=== PATIENT | male | born 1955 | race Caucasian/White ===

== ENCOUNTER → 2020-07-23 | Outpatient (CLI) | payer BC ==
--- NOTE | 2020-07-23 13:11 | CT ---
EXAMINATION TYPE: CT pelvis w con DATE OF EXAM: 07/23/2020 COMPARISON: None HISTORY: right sided groin pain without injury CT DLP: 762 mGycm Automated exposure control for dose reduction was used. TECHNIQUE: Helical acquisition of images from the lung bases through the pelvis have been completed. CONTRAST: Performed without Oral Contrast and with IV Contrast, patient injected with 100 mL of Isovue 300. FINDINGS: There is some motion present. LUNG BASES: No significant abnormality is appreciated. AORTA: No significant abnormality is appreciated. LIVER/GB: No significant abnormality is appreciated in the visualized portions. PANCREAS: No significant abnormality is seen in the visualized portions. SPLEEN: No significant abnormality is seen. ADRENALS: No significant abnormality is seen. KIDNEYS: No significant abnormality is seen. REPRODUCTIVE ORGANS: Calcifications associated with the prostate. Bilateral hydroceles are suspected. BOWEL: Diverticular changes associated with the colon. FREE AIR: No Free Air visible. ASCITES: None visible. PELVIC ADENOPATHY: None visualized. RETROPERITONEAL ADENOPATHY: No Retroperitoneal Adenopathy visible. URINARY BLADDER: Thickened bladder wall could be due to lack of distention, correlate to exclude cys titis, chronic bladder outlet obstruction. OSSEOUS STRUCTURES: Spondylosis is noted with mild degenerative disc disease and facet arthropathy. There is a disc herniation at L3-4. Some ankylosis, degenerative change present at the sacroiliac charlotte nt on the right. IMPRESSION: DEGENERATIVE DISC DISEASE AND FACET ARTHROPATHY DESCRIBED. DIVERTICULOSIS. BILATERAL HYDROCELES. A DDITIONAL FINDINGS ABOVE.
== END | disposition home or self-care (01) ==
LOC: RADCTMAIN 11:26
PROVIDERS: ATTEND Surgery
DX: N43.3 Hydrocele, unspecified (principal); K57.30 Diverticulosis of large intestine without perforation or abscess without bleeding; N32.89 Other specified disorders of bladder
CPT/HCPCS: 72193; Q9967

== ENCOUNTER → 2021-04-21 | Outpatient (CLI) | payer MEDICARE ==
[2021-04-21 10:24] LABS: Basophils % (A) 1 %; Eosinophils # (A) 0.2 k/uL (0-0.7); Eosinophils % (A) 3 %; HCT 44.1 % (39.0-53.0); HGB 14.6 gm/dL (13.0-17.5); Lymphocytes % (A) 32 %; MCH 33.1 pg (25.0-35.0); MCV 100.2 fL (80.0-100.0); Mean Platelet Volume 6.9; Monocytes # (A) 0.6 k/uL (0-1.0); Monocytes % (A) 9 %; Neutrophils # (A) 3.4 k/uL (1.3-7.7); Neutrophils % (A) 52 %; Platelet Count 289 k/uL (150-450); RDW 12.1 % (11.5-15.5); WBC 6.4 k/uL (3.8-10.6)
[2021-04-21 10:35] LABS: Potassium 4.1 mmol/L (3.5-5.1)
== END | disposition home or self-care (01) ==
LOC: LABPAT 09:40
PROVIDERS: ATTEND Orthopaedic Surgery
DX: Z01.812 Encounter for preprocedural laboratory examination (principal); M70.22 Olecranon bursitis, left elbow
CPT/HCPCS: 36415; 80051; 85025

== ENCOUNTER → 2021-06-22 | Outpatient (CLI) | payer MEDICARE, BC ==
[2021-06-22 09:42] LABS: Basophils % (A) 1 %; Eosinophils # (A) 0.2 k/uL (0-0.7); Eosinophils % (A) 4 %; HCT 43.7 % (39.0-53.0); HGB 14.5 gm/dL (13.0-17.5); Lymphocytes # (A) 1.9 k/uL (1.0-4.8); Lymphocytes % (A) 30 %; MCH 33.3 pg (25.0-35.0); MCHC 33.3 g/dL (31.0-37.0); MCV 99.9 fL (80.0-100.0); Mean Platelet Volume 6.7; Monocytes # (A) 0.5 k/uL (0-1.0); Monocytes % (A) 7 %; Neutrophils # (A) 3.5 k/uL (1.3-7.7); Neutrophils % (A) 56 %; Platelet Count 271 k/uL (150-450); RBC 4.37 m/uL (4.30-5.90); RDW 11.9 % (11.5-15.5); WBC 6.3 k/uL (3.8-10.6)
[2021-06-22 10:08] LABS: Potassium 4.8 mmol/L (3.5-5.1)
== END | disposition home or self-care (01) ==
LOC: LABPAT 09:01
PROVIDERS: ATTEND Orthopaedic Surgery
DX: Z01.812 Encounter for preprocedural laboratory examination (principal); M70.22 Olecranon bursitis, left elbow
CPT/HCPCS: 36415; 80051; 85025

== ENCOUNTER 2021-07-07 06:32 | Day surgery (SDC) | payer MEDICARE, BC ==
[2021-07-06 08:50] VITALS: BMI 25.7
--- NOTE | 2021-07-06 19:26 | HP ---
HISTORY AND PHYSICAL DATE OF SURGERY: 07/07/2021 Hal Julio is a 65-year-old gentleman seen with a persistent symptomatic left elbow olecranon bursitis. We discussed options for treatment and elected to proceed with surgical excision/olecranon bursectomy. Consent was obtained. PAST MEDICAL HISTORY: Noncontributory. PAST SURGICAL HISTORY: Noncontributory. DAILY MEDICATIONS: None. ALLERGIES: None known. SOCIAL HISTORY: Denies tobacco use. PHYSICAL EVALUATION OF THE LEFT ELBOW: There is significant swelling of the olecranon bursa. Small pin hole with some serous drainage. Tenderness to palpation along the olecranon bursa. Range of motion is near full. His distal neurovascular exam is intact. Radiographs of the left elbow revealed no osseous abnormality. IMPRESSION: Left elbow olecranon bursitis. PLAN: Left elbow olecranon bursectomy. MMODL / IJN: [id number] /
[~2021-07-07 06:32] MED LIST: DEXAMETHASONE SOD PHOSPHATE 4 MG/ML 1 ML VIAL IV ONE; LACTATED RINGERS 1,000 ML IV SCH; LIDOCAINE 1% (10MG/ML) FOR IV START INTRADERMA PRN; MIDAZOLAM 2 MG/2 ML VIAL IV PRN; ONDANSETRON 4 MG/2 ML VIAL IVP ONE
[2021-07-07] MEDS ORDERED: HYDROmorphone 0.5 MG/0.5 ML SYRINGE IVP PRN ×2 (07:00→08:17)
[2021-07-07] MEDS ORDERED: KETAMINE 10 MG/ML 20 ML VIAL ONE (07:20)
[2021-07-07] MEDS ORDERED: MIDAZOLAM 2 MG/2 ML VIAL ONE (07:20)
[2021-07-07] MEDS ORDERED: fentaNYL (PF) 50 MCG/ML 2 ML AMP ONE (07:20)
[2021-07-07] MEDS ORDERED: KETOROLAC 15 MG/ML 1 ML VIAL ONE (07:20)
[2021-07-07] MEDS ORDERED: PROPOFOL 10 MG/ML 20 ML VIAL IV ONE (07:20)
[2021-07-07] MEDS ORDERED: LIDOCAINE 1% INJ 10MG/ML (20 ML MDV) ONE (07:20)
[2021-07-07] MEDS ORDERED: BUPIVACAINE (PF) 0.25% 30 ML VIAL SQ ONE ×2 (07:52→08:12)
[2021-07-07] MEDS ORDERED: HYDROmorphone 0.2 MG/1 ML SYRINGE IVP PRN (08:17)
[2021-07-07] MEDS ORDERED: HYDROcodone/APAP 5-325MG 1 EACH TAB PO PRN (08:17)
[2021-07-07] MEDS ORDERED: HYDROmorphone 1 MG/ML 1 ML SYRINGE IVP PRN (08:17)
[2021-07-07] MEDS ORDERED: ONDANSETRON 4 MG/2 ML VIAL IVP PRN (08:17)
--- NOTE | 2021-07-07 08:17 | P.OP ---
Date of Procedure: 07/07/21 Preoperative Diagnosis: Left elbow olecranon bursitis Postoperative Diagnosis: Infected left elbow olecranon bursitis Procedure(s) Performed: Left elbow olecranon bursectomy Anesthesia: JOELLENA, local Surgeon: Nakul Kurtz Marketing Recruiter #1: Raphael Cornejo Estimated Blood Loss (ml): 7 Pathology: none sent Condition: stable Disposition: PACU Indications for Procedure: 65-year-old patient seen with left elbow olecranon bursitis. Noted some persistent drainage in the area for a few months. I recommended olecranon bursectomy. He was agreeable. Consent was obtained. Operative Findings: See description of procedure Description of Procedure: The patient was taken to the operative suite. He underwent a general anesthetic by the department of anesthesia. He received preoperative IV antibiotics. A well-padded tourniquet placed proximal left upper extremity. The left upper extremity was prepped and draped in the normal sterile orthopedic fashion. The extremity was elevated and tourniquet insufflated to 250. An incision was made over the area of the olecranon bursa sharply through skin. There was an area of drainage centrally. I did make an incision through that area. I noted the area of infected olecranon bursa which I took cultures of. I now with assistance of Deangelo WHITAKER performed a thorough olecranon bursectom excising all bursal- appearing tissue. There did not appear to be any involvement of the olecranon itself. The wound was irrigated copiously. I repaired the subcu soft tissues with 2-0 Vicryl. The skin was approximated with nylon suture. The subcutaneous soft tissues were infiltrated with local analgesic. Sterile dressings were applied. The tourniquet was released with immediate capillary refill noted. The patient was awakened and transferred to recovery in stable condition having tolerated procedure well.
[2021-07-07] MEDS ORDERED: VANCOMYCIN IV PER PHARMACY 1 EACH MISC MISCELLANE PRN (10:05)
[2021-07-07] MEDS ORDERED: VANCOMYCIN 1,500 MG in SODIUM CHLORIDE 0.9% 250 ML IVPB ONE (12:30)
[2021-07-07 14:53] LABS: African American GFR (CKD) 88 (>60 ml/min/1.73 sqM); Anion Gap 10 mmol/L; Blood Urea Nitrogen 19 mg/dL (9-20); C Reactive Protein 0.8 mg/dL (<1.0); Calcium 9.2 mg/dL (8.4-10.2); Carbon Dioxide 22 mmol/L (22-30); Chloride 105 mmol/L (98-107); Glucose 162 mg/dL (74-99); Non-African American GFR(CKD) 76 (>60 ml/min/1.73 sqM); Potassium 4.5 mmol/L (3.5-5.1); Sodium 137 mmol/L (137-145)
[2021-07-07] MEDS: CEFEPIME 2 GM in SODIUM CHLORIDE 0.9% 100 ML IVPB SCH ×2 (15:02→19:47)
--- NOTE | 2021-07-07 16:54 | P.HPIM ---
History of Present Illness H&P Date: 07/07/21 Chief Complaint: left elbow drainage Patient is a 65-year-old male with no known past medical history who presented for elective left elbow olecranon bursectomy secondary to chronic drainage from his olecranon bursitis. On screening he was coded positive. Patient seen and examined at bedside. His pain is well controlled after surgery. He states he initially started having drainage in April 2021. At that point in time he underwent a course of Keflex and Cipro. Since that time he has had intermittent drainage and swelling. He then elected to undergo bursectomy. He reports that he has no history of colon in the past. He has not been vaccinated. He denies any recent cough, cold, fever, flu, nausea, vomiting, diarrhea. He is asymptomatic. He has no known: Contacts. No one at home is sick. He did just travel home from [facility]. Pertinent positives and negatives as discussed in HPI, a complete review of systems was performed and all other systems are negative. General: non toxic, no distress, appears at stated age Derm: warm, dry dressing in place over her left elbow Head: atraumatic, normocephalic, symmetric Eyes: EOMI, no lid lag, anicteric sclera, pupils equal round reactive to light ENT: Nose and ears atraumatic, no thrush, no pharyngeal erythema Neck: No thyromegaly, no cervical lymphadenopathy, trachea midline, supple Mouth: no lip lesion, mucus membranes moist Cardiovascular: S1S2 reg, no murmur, positive posterior tibial pulse bilateral, no edema, capillary refill less than 2 seconds Lungs: clear to ascultation bilateral, no ronchi, no rales, no wheeze, no accessory muscle use Abdominal: soft, nontender to palpation, no guarding, no appreciable organomegaly, normal bowel sounds Ext: no gross muscle atrophy, muscle strength muscle strength intact bilateral lower extremities, no contractures, dressing in place over left elbow Neuro: CN II-XI grossly intact, light touch intact all 4 extremities, finger to nose within normal limits, Psych: Alert, oriented, appropriate affect COVID-19 upper respiratory tract infection -Asymptomatic -Continue to monitor -Zinc and vitamin C -Check CBC but avoid the remainder of the labs unless patient spikes fever or becomes symptomatic. -No additional medications warranted unless patient starts requiring oxygen. Chronic bursitis -Status post olecranon bursectomy -On cefepime and vancomycin per orthopedic surgery -Await infectious disease recommendations Thank you for allowing us to participate in the care of this pleasant patient. Do not hesitate to contact us with questions. Someone can be reached from the [facility] hospitalist group all hours of the day at [phone] or via [employer]. Past Medical History Past Medical History: No Reported History History of Any Multi-Drug Resistant Organisms: None Reported Past Surgical History: Tonsillectomy Past Anesthesia/Blood Transfusion Reactions: No Reported Reaction Past Psychological History: No Psychological Hx Reported Smoking Status: Never smoker Past Alcohol Use History: Occasional Past Drug Use History: None Reported - Past Family History Father Family Medical History: Cancer Additional Family Medical History / Comment(s): COLON CANCER Medications and Allergies Home Medications Medication Instructions Recorded Confirmed Type No Known Home Medications 07/06/21 07/07/21 History Allergies Allergy/AdvReac Type Severity Reaction Status Date / Time No Known Allergies Allergy Verified 07/07/21 06:52 Physical Exam Osteopathic Statement: *. No significant issues noted on an osteopathic structural exam other than those noted in the History and Physical/Consult. Vitals: Vital Signs Temp Pulse Pulse Resp BP Pulse Ox 07/07/21 13:30 98 F 64 17 132/75 95 07/07/21 12:57 68 18 131/72 99 07/07/21 12:00 58 L 18 113/64 99 07/07/21 11:00 64 20 121/67 98 07/07/21 10:30 60 18 119/71 99 07/07/21 10:00 54 L 18 117/66 98 07/07/21 09:30 58 L 18 118/68 98 07/07/21 09:00 58 L 18 112/67 98 07/07/21 08:45 54 L 18 107/66 98 07/07/21 08:32 56 L 16 99/61 98 07/07/21 08:19 97.8 F 66 16 112/64 98 07/07/21 06:57 98.0 F 77 16 134/83 97 Intake and Output 07/07/21 07/07/21 07/07/21 06:59 14:59 22:59 Intake Total 1000 Output Total 7 Balance 993 Intake: IV 1000 Output: Estimated Blood Loss 7 Other: # Voids 1 Weight 90.718 kg Results CBC & Chem 7: 10/28/21 13:55 Labs: Abnormal Lab Results - Last 24 Hours (Table) 07/07/21 07/07/21 Range/Units 09:30 13:55 Glucose 162 H (74-99) mg/dL Coronavirus (PCR) Detected A (Not Detectd) Thrombosis Risk Factor Assmnt - Choose All That Apply Any of the Below Risk Factors Present?: No Other Risk Factors: Yes Each Risk Factor Represents 2 Points: Age 61-74 years Thrombosis Risk Factor Assessment Total Risk Factor Score: 2 Thrombosis Risk Factor Assessment Level: Low Risk
[2021-07-07] MEDS: ZINC SULFATE 220 MG CAP PO SCH (17:41)
[2021-07-07] MEDS: ASCORBIC ACID 500 MG TAB PO SCH (17:41)
[2021-07-07] MEDS: HYDROcodone/APAP 5-325MG 1 EACH TAB PO PRN ×2 (17:42→23:54)
[2021-07-07] MEDS: CHOLECALCIFEROL 25 MCG (1000 IU) TABLET PO SCH (19:26)
[2021-07-07] MEDS: LACTATED RINGERS 1,000 ML IV SCH (19:29)
[2021-07-07 20:09] VITALS: RESP 18
--- NOTE | 2021-07-07 23:35 | P.CONS ---
History of Present Illness - Reason for Consult Consult date: 07/07/21 left olecranon bursitis Requesting physician: Nakul Kurtz - Chief Complaint left elbow draiange x few months - History of Present Illness History of present illness : Patient is a 65-year-old male apparently has been dealing with left elbow infection that has been going on for almost 3 months now patient mention initially he was treated with an oral Keflex subsequently he did have a cultures obtained and was told it was a Pseudomonas and the patient was treated with a 10-day course of oral Cipro the patient mentioned has some improvement but not complete resolution patient has been dealing with drainage from his left elbow area patient has significant pain to the elbow area minimal swelling with no significant redness and denies high- grade fever patient subsequently was referred to Dr. Kurtz, patient was taken to the this morning and the patient is status post left elbow olecranon bursectomy culture has been obtained and has been mentioned that the bone looked healthy and no concern for osteomyelitis patient was started on vancomycin adm itted to the hospital infectious was consulted for further management patient currently denies having any fever or any chills denies having any chest pain no shortness of breath or cough no nausea vomiting abdominal pain no diarrhea and insisted on going home Review of system: CONSTITUTIONAL: Positive for weakness denies fever. EYES: No complaint. ENT: No complaint. RESPIRATORY: No complaint. CARDIOVASCULAR: No complaint. GENITOURINARY: No complaint. GASTROINTESTINAL: No complaint. MUSCULOSKELETAL: As per history of present illness INTEGUMENTARY: No complaint. PSYCHOLOGIC: No complaint. ENDOCRINE: No complaint. NEUROLOGIC: No complaint. Past medical history : Reviewed, documented below Past surgical history : Reviewed, documented below Social history: Reviewed, documented below Medications: Reviewed, as documented below EXAMINATION: Vital sigans= Reviewed and documented below GENERAL DESCRIPTION: Elderly male lying in bed, no distress. No tachypnea or accessory muscle of respiration use. HEENT: Shows Pallor , no scleral icterus. Oral mucous membrane is dry. NECK: Trachea central, no thyromegaly. LUNGS: Unlabored breathing. Clear to auscultation anteriorly. No wheeze or crackle. HEART: S1, S2, regular rate and rhythm. ABDOMEN: Soft, no tenderness , guarding or rigidity EXTREMITIES: Left elbow is currently dressed in the OR and dressing had no drainage of the dressing SKIN: No rash, no masses palpable. NEUROLOGICAL: The patient is awake, alert, oriented x3, mood and affect normal. LABS AND RADIOLOGY: Reviewed results see below Assessment : Patient presented to hospital with a left olecranon bursitis chronic that has failed to respond to outpatient oral antibiotic therapy apparently the patient did have a previous culture positive for Pseudomonas davian henry I do not have access to those culture as there are no cultures in the [facility] system possibly related to Pseudomonas versus a gram-positive skin guillermo in this patient with status post bursectomy with mention of no problem with underlying bone Plan: 1-vancomycin pharmacy to dose with a target trough of 15 while watching kidney function and Vanco trough closely. 2-cefepime 2 g every 8 hours 3-discharge antibiotic on the basis of culture however the patient insisted on going home without waiting for the culture and option may be oral Bactrim DS and Cipro to start with and adjust it further on the basis of cultures We will follow on clinical condition and cultures to further adjust medication if needed Thank you for this consultation we will follow the patient along with you Past Medical History Past Medical History: No Reported History History of Any Multi-Drug Resistant Organisms: None Reported Past Surgical History: Tonsillectomy Past Anesthesia/Blood Transfusion Reactions: No Reported Reaction Past Psychological History: No Psychological Hx Reported Smoking Status: Never smoker Past Alcohol Use History: Occasional Past Drug Use History: None Reported - Past Family History Father Family Medical History: Cancer Additional Family Medical History / Comment(s): COLON CANCER Medications and Allergies Home Medications Medication Instructions Recorded Confirmed Type No Known Home Medications 07/06/21 07/07/21 History Allergies Allergy/AdvReac Type Severity Reaction Status Date / Time No Known Allergies Allergy Verified 07/07/21 06:52 Physical Exam Vitals: Vital Signs Temp Pulse Pulse Resp BP Pulse Ox 07/07/21 12:57 68 18 131/72 99 07/07/21 12:00 58 L 18 113/64 99 07/07/21 11:00 64 20 121/67 98 07/07/21 10:30 60 18 119/71 99 07/07/21 10:00 54 L 18 117/66 98 07/07/21 09:30 58 L 18 118/68 98 07/07/21 09:00 58 L 18 112/67 98 07/07/21 08:45 54 L 18 107/66 98 07/07/21 08:32 56 L 16 99/61 98 07/07/21 08:19 97.8 F 66 16 112/64 98 07/07/21 06:57 98.0 F 77 16 134/83 97 Intake and Output 07/06/21 07/07/21 07/07/21 22:59 06:59 14:59 Intake Total 1000 Output Total 7 Balance 993 Intake: IV 1000 Output: Estimated Blood Loss 7 Other: Weight 90.718 kg Results CBC & Chem 7: 07/07/21 13:55 Labs: Abnormal Lab Results - Last 24 Hours (Table) 07/07/21 Range/Units 09:30 Coronavirus (PCR) Detected A (Not Detectd)
[2021-07-07] MEDS: VANCOMYCIN 1,500 MG in SODIUM CHLORIDE 0.9% 250 ML IVPB SCH (23:54)
[2021-07-08] MEDS: CEFEPIME 2 GM in SODIUM CHLORIDE 0.9% 100 ML IVPB SCH ×2 (04:17→12:56)
[2021-07-08] MEDS: LACTATED RINGERS 1,000 ML IV SCH (04:18)
[2021-07-08 06:03] LABS: African American GFR (CKD) >90 (>60 ml/min/1.73 sqM); LDH 337 U/L (313-618); Non-African American GFR(CKD) 80 (>60 ml/min/1.73 sqM)
[2021-07-08 06:32] LABS: C Reactive Protein 0.7 mg/dL (<1.0)
[2021-07-08] MEDS: ASCORBIC ACID 500 MG TAB PO SCH (08:15)
[2021-07-08] MEDS: ZINC SULFATE 220 MG CAP PO SCH (08:15)
[2021-07-08] MEDS: CHOLECALCIFEROL 25 MCG (1000 IU) TABLET PO SCH (08:15)
--- NOTE | 2021-07-08 08:15 | XR ---
EXAMINATION TYPE: XR chest 1V portable DATE OF EXAM: 07/08/2021 COMPARISON: None INDICATION: Pneumonia TECHNIQUE: Single frontal view of the chest is obtained. FINDINGS: The heart size is normal. The pulmonary vasculature is normal. The lungs are clear. IMPRESSION: 1. No acute pulmonary process.
[2021-07-08] MEDS: HYDROcodone/APAP 5-325MG 1 EACH TAB PO PRN (08:33)
[2021-07-08] MEDS: VANCOMYCIN 1,500 MG in SODIUM CHLORIDE 0.9% 250 ML IVPB SCH (08:34)
--- NOTE | 2021-07-08 09:31 | P.PN ---
Subjective Progress Note Date: 07/08/21 Principal diagnosis: Status post left elbow olecranon bursectomy, acute COVID-19 infection Patient was evaluated early this morning at bedside, he is resting comfortably. He notes minimal discomfort of the left elbow at this time. He denies any fever or chills at this time. He denies any shortness of breath or chest pain. He is eager to go home at this time. Patient was evaluated by both internal medicine and infectious disease. Objective - Vital Signs Vital signs: Vital Signs Temp 97.5 F L 07/08/21 07:00 Pulse 65 07/08/21 07:00 Resp 18 07/08/21 07:00 BP 130/73 07/08/21 07:00 Pulse Ox 97 07/08/21 07:00 Intake & Output 07/07/21 07/08/21 07/08/21 18:59 06:59 18:59 Intake Total 1000 1650 Output Total 7 Balance 993 1650 Weight 90.718 kg Intake: IV 1000 Intake, IV Titration 1650 Amount Cefepime 2 gm In Sodium 200 Chloride 0.9% 100 ml @ 25 mls/hr IVPB Q8H DANNY Rx#: [id number] Lactated Ringers 1,000 ml 1200 @ 100 mls/hr IV .Q10H DANNY Rx#:[id number] Vancomycin 1,500 mg In 250 Sodium Chloride 0.9% 250 ml @ 125 mls/hr IVPB Q12HR DANNY Rx#:[id number] Output: Estimated Blood Loss 7 Other: # Voids 1 2 - Exam Left upper extremity: Postoperative bandage was removed today at bedside, there is mild dried blood on the bandage. No active drainage is appreciated at this time. Stitches are all in good position and condition. Mild soft tissue swelling present. Range of motion is intact at the elbow with both flexion and extension. Wrist extension, wrist flexion and finger intrinsics are all intact. Sensation to light touchis intact throughout the extremity. His radial and ulnar pulses are 2+. - Labs CBC & Chem 7: 07/08/21 05:13 Labs: Abnormal Lab Results - Last 24 Hours (Table) 07/07/21 07/07/21 07/08/21 Range/Units 09:30 13:55 06:55 Glucose 162 H (74-99) mg/dL Coronavirus (PCR) Detected A Detected A (Not Detectd) Microbiology - Last 24 Hours (Table) 07/07/21 08:01 Gram Stain - Preliminary Elbow - Left Wound Culture - Preliminary 07/07/21 08:01 Gram Stain - Preliminary Elbow - Left Wound Culture - Preliminary 07/07/21 08:01 Anaerobic Culture - Preliminary Elbow - Left 07/07/21 08:01 Anaerobic Culture - Preliminary Elbow - Left Assessment and Plan Assessment: Postoperative day #1 status post left elbow septic olecranon bursectomy COVID-19 infection Plan: Discuss current treatment plan with patient at bedside, he will continue on the IV antibiotics while he is in the hospital. Infectious diseases recommending both ciprofloxacin and Bactrim DS oral tablets at discharge. We will continue to monitor for the culture and sensitivity result, this may alter the antibiotic course Wound care instructions were discussed with the patient today at bedside, I rec ommended a basic pull on compression sleeve with basic gauze dressings over the incision. He will keep incision covered and dry while showering. He will not remove the stitches at this time. We discussed activity will restrictions, he needs to avoid excess flexion and excess activity with that upper extremity Other medical specialists recommendations appreciated Discharge planning: Plan for discharge home today Time with Patient: Less than 30
--- NOTE | 2021-07-08 13:02 | P.PN ---
<Gabe Hughes - Last Filed: 07/08/21 12:30> Subjective Progress Note Date: 07/08/21 Hospital Course: Patient is a 65-year-old male with no known past medical history who presented to the hospital on 07/07/21 for elective left elbow olecranon bursectomy secondary to chronic drainage from his olecranon bursitis. On screening pt was found to be Covid positive. Pt is admitted under general orthopedic surgery team and we have been consulted along with infectious disease for continued medical management. Physical examination: Patient seen and fully examined at bedside. He reports postoperative pain to left elbow is controlled. Postsurgical dressing is clean, dry, and intact with no noted bleeding or drainage. Patient continues to deny having any symptoms of Covid 19 virus infection including headache, lightheadedness, dizziness, fatigue, cough, congestion, chest pain, palpitations, shortness of breath, or dyspnea with exertion. Patient has been afebrile since admission. Inflammatory markers are not elevated as ESR 8, D-dimer 0.41 and CRP 0.7. Orthopedic plan is for discharge home today, Pt being discharged home on oral antibiotics Bactrim and Cipro as recommended by ID. From medical standpoint, patient is cleared for discharge pending further orders from orthopedics specialist. General: non toxic, no distress, appears at stated age Derm: Clean, dry, and intact dressing in place over left elbow Head: atraumatic, normocephalic, symmetric Eyes: EOMI, no lid lag, anicteric sclera, pupils equal round reactive to light ENT: Nose and ears atraumatic, no thrush, no pharyngeal erythema Neck: No thyromegaly, no cervical lymphadenopathy, trachea midline, supple Mouth: no lip lesion, mucus membranes moist Cardiovascular: S1S2 reg, no murmur, positive posterior tibial pulse bilateral, no edema, capillary refill less than 2 seconds Lungs: clear to ascultation bilateral, no ronchi, no rales, no wheeze, no accessory muscle use Abdominal: soft, nontender to palpation, no guarding, no appreciable organomegaly, normal bowel sounds Ext: no gross muscle atrophy, muscle strength muscle strength intact bilateral lower extremities, no contractures, dressing in place over left elbow Neuro: CN II-XI grossly intact, light touch intact all 4 extremities, finger to nose within normal limits, Psych: Alert, oriented, appropriate affect Assessment and Plan of Care: COVID-19 upper respiratory tract infection in unvaccinated individual -Asymptomatic -Continue to monitor -Zinc, vitamin C and Vitamin D -No additional medications warranted unless patient starts requiring oxygen. Chronic bursitis status post olecranon bursectomy -Status post olecranon bursectomy - Pt being discharged home on oral antibiotics Bactrim and Cipro as recommended by ID -Preliminary cultures showing no growth Thank you for allowing us to participate in the care of this pleasant patient. Do not hesitate to contact us with questions. Someone can be reached from the [facility] hospitalist group all hours of the day at [phone] or via [employer]. Objective - Vital Signs Vital signs: Vital Signs Temp 97.5 F L 07/08/21 07:00 Pulse 65 07/08/21 07:00 Resp 18 07/08/21 07:00 BP 130/73 07/08/21 07:00 Pulse Ox 97 07/08/21 07:00 Intake & Output 07/07/21 07/08/21 07/08/21 18:59 06:59 18:59 Intake Total 1000 1650 Output Total 7 Balance 993 1650 Weight 90.718 kg Intake: IV 1000 Intake, IV Titration 1650 Amount Cefepime 2 gm In Sodium 200 Chloride 0.9% 100 ml @ 25 mls/hr IVPB Q8H DANNY Rx#: [id number] Lactated Ringers 1,000 ml 1200 @ 100 mls/hr IV .Q10H DANNY Rx#:[id number] Vancomycin 1,500 mg In 250 Sodium Chloride 0.9% 250 ml @ 125 mls/hr IVPB Q12HR DANNY Rx#:[id number] Output: Estimated Blood Loss 7 Other: # Voids 1 2 - Labs CBC & Chem 7: 07/08/21 05:13 Labs: Abnormal Lab Results - Last 24 Hours (Table) 07/07/21 07/07/21 07/08/21 Range/Units 09:30 13:55 06:55 Glucose 162 H (74-99) mg/dL Coronavirus (PCR) Detected A Detected A (Not Detectd) Microbiology - Last 24 Hours (Table) 07/07/21 08:01 Wound Culture - Preliminary Elbow - Left 07/07/21 08:01 Anaerobic Culture - Preliminary Elbow - Left 07/07/21 08:01 Wound Culture - Preliminary Elbow - Left 07/07/21 08:01 Anaerobic Culture - Preliminary Elbow - Left <Wendi Hoyt A - Last Filed: 07/08/21 20:40> Subjective Gabe Hughes NP rendered care for this patient independently, reviewed the findings and plan as documented in the note above. I did not physically speak with or examine the patient on this date. Objective - Vital Signs Vital signs: Vital Signs Temp 98.0 F 07/08/21 14:41 Pulse 64 07/08/21 14:41 Resp 18 07/08/21 14:41 BP 105/61 07/08/21 14:41 Pulse Ox 95 07/08/21 14:41 Intake & Output 07/08/21 07/08/21 07/09/21 06:59 18:59 06:59 Intake Total 1650 500 Balance 1650 500 Intake: Intake, IV Titration 1650 Amount Cefepime 2 gm In Sodium 200 Chloride 0.9% 100 ml @ 25 mls/hr IVPB Q8H DANNY Rx#: [id number] Lactated Ringers 1,000 ml 1200 @ 100 mls/hr IV .Q10H DANNY Rx#:[id number] Vancomycin 1,500 mg In 250 Sodium Chloride 0.9% 250 ml @ 125 mls/hr IVPB Q12HR DANNY Rx#:[id number] Oral 500 Other: # Voids 2 - Labs CBC & Chem 7: 07/08/21 05:13 Labs: Abnormal Lab Results - Last 24 Hours (Table) 07/08/21 Range/Units 06:55 Coronavirus (PCR) Detected A (Not Detectd) Microbiology - Last 24 Hours (Table) 07/07/21 13:55 Blood Culture - Preliminary Blood No Growth after 24 hours 07/07/21 08:01 Gram Stain - Preliminary Elbow - Left Wound Culture - Preliminary 07/07/21 08:01 Gram Stain - Preliminary Elbow - Left Wound Culture - Preliminary 07/07/21 08:01 Anaerobic Culture - Preliminary Elbow - Left 07/07/21 08:01 Anaerobic Culture - Preliminary Elbow - Left
[2021-07-08 14:42] VITALS: BP 105/61; PULSE 64; TEMP 98
--- NOTE | 2021-07-08 16:28 | PN ---
PROGRESS NOTE DATE OF SERVICE: 07/08/2021 REASON FOR FOLLOWUP: 1. Left olecranon bursitis. 2. Positive COVID test. INTERVAL HISTORY: The patient was seen on rounds this morning. The patient has been afebrile. The patient is feeling better, breathing comfortably on room air. Denies any chest pain or shortness of breath or cough. No nausea, vomiting or abdominal pain. Overall pain and discomfort the left elbow has decreased in intensity. PHYSICAL EXAMINATION: Blood pressure 130/73 with a pulse of 65, temperature 97.5. He is 97% on room air. General description is an elderly male lying in bed in no distress. RESPIRATORY SYSTEM: Unlabored breathing. Decreased breath sounds. Patient's left elbow is currently dressed. Reviewing the ortho note, stitches were still intact in good position. Mild soft tissue swelling. Apparently there was no drainage. LABS: Patient did have positive COVID test. However, the patient did have normal D-dimer, CRP and LDH. Chest x-ray did not show any acute inflammation. The cultures from the elbow are currently pending. DIAGNOSTIC IMPRESSION AND PLAN: 1. Patient with left elbow chronic olecranon bursitis, status post bursectomy in this patient who failed multiple oral antibiotic therapy. The patient is insistent on going home and does not want to wait for the cultures. Plan will be for Bactrim DS and Cipro for 2 weeks until the patient evaluated in the office. 2. Positive COVID test, mild illness. Patient is asymptomatic from it. Will be mostly for 10 days. No need for antibiotics or antibody therapy. MMODL / IJN: [id number] /
[2021-07-09] MEDS ORDERED: VANCOMYCIN TROUGH DUE 1 EACH MISC MISCELLANE ONE (20:00)
== END 2021-07-08 17:00 | disposition home or self-care (01) ==
LOC: OR 06:32 → 6NMEDSUR 08:16 → OR 07-08 17:00
PROVIDERS: ATTEND Orthopaedic Surgery
DX: M70.22 Olecranon bursitis, left elbow (principal); U07.1 COVID-19
CPT/HCPCS: 24105; 85379; 80048; 85652; 82565; 83615; 86140 ×2; 87040; 87070; 87205; 87075; 87635 ×2; 71045; J3370 ×2; J1100; J0690; J2405; J0692 ×2